=== PATIENT | female | born 1970 | race Caucasian/White ===

== ENCOUNTER 2020-06-20 07:30 | Emergency (ER) | payer BC ==
[2020-06-20 07:43] VITALS: TEMP 98.3; BMI 24.6
--- OUTSIDE RECORDS SUMMARY | 2020-06-20 07:44 | XMS ---
:1970 Demographics Address [address] [place] [id number] Preferred Language Chinese Marital Status or Scientology Affiliation [place] Race [facility] Ethnic Group or Author Organization [facility] Care Team Providers Name Role Phone ISRAEL CELIS Unavailable Unavailable Re-disclosure Warning The records that you are about to access may contain information from federally- assisted alcohol or drug abuse programs. If such information is present, then the following federally mandated warning applies: This information has been disclosed to you from records protected by federal confidentiality rules (42 CFR part 2). The federal rules prohibit you from making any further disclosure of this information unless further disclosure is expressly permitted by the written consent of the person to whom it pertains or as otherwise permitted by 42 CFR part 2. A general authorization for the release of medical or other information is NOT sufficient for this purpose. The Federal rules restrict any use of the information to criminally investigate or prosecute any alcohol or drug abuse patient.The records that you are about to access may contain highly sensitive health information, the redisclosure of which is protected by Article 27-F of the [facility] Public Health law. If you continue you may haveaccess to information: Regarding HIV / AIDS; Provided by facilities licensed or operated by the [facility] Office of Mental Health; or Provided by the [facility] Office for People With Developmental Disabilities. If such information is present, then the following [facility] mandated warning applies: This information has been disclosed to you from confidential records which are protected by state law. State law prohibits you from making any further disclosure of this information without the specific written consent of the person to whom it pertains, or as otherwise permitted by law. Any unauthorized further disclosure in violation of state law may result in a fine or senior care sentence or both. A general authorization for the release of medical or other information is NOT sufficient authorization for further disclosure. Encounters Encounter Providers Location Date Indications Data Source(s ) Outpatient Attender: LALITA, 12/31/2019 Z03.818 [facility] ISRAEL LopezAdmitter: 03:53:00 AM Health [facility] ISRAEL CELIS [employer] Z03.818 Insurance Providers Payer name Policy type / Policy ID Covered Covered democrat's Policy Plan Coverage type democrat ID relationship to [employer] Information pel[employer] BC PPO [id number] SP [id number] Problems, Conditions, and Diagnoses Code Display Name Description Problem Type Effective Data Sour ce(s) Dates Z03.818 Encounter for ENCNTR FOR OBS Diagnosis 12/31/2019 Tad roberts observation for FOR SUSP EXPSR TO 03:53:00 AM [employer] [facility] suspected OTH [employer] AG[employer] exposure to other RULED OUT biological agents ruled out Results ID Date Data Source [id number] 12/31/2019 12:00:00 AM EDT [facility] Name Value Range Interpretation Code Description Data Jodi rce(s) Supporting Document(s ) [facility] RNA XXX MANNIE+probe- Imp This lab was ordered by [facility] and reported by [employer] Procedure
--- NOTE | 2020-06-20 08:12 | PDOC ---
History of Present Illness - General Chief Complaint: Back Pain Stated Complaint: BACK PAIN Time Seen by Provider: 06/20/20 07:55 - History of Present Illness Initial Comments: 06/20/20 08:05 49yo F with PMH of pre-diabetes, HLD, and chronic lower back pain, presents with an acute lower back pain since last night. States it started suddenly after she bent over to get something, then came back up. She immediately began experie ncing pressure-like pain in her lower back radiating to right buttock. Denies radiation down the leg. Worse with any movement. Took advil last night and 1000mg tylenol this morning without significant relief. Denies fever, bladder/bowel incontinence/retention, IV drug use, history of cancer. PMH: as above PSH: benign breast mass excision Meds: simvastatin, vitamins Allergies Allergy/AdvReac Type Severity Reaction Status Date / Time clarithromycin [From Biaxin] Allergy Severe Itching Verified 12/28/14 11:27 levofloxacin [From Levaquin] AdvReac Intermediate Unverified 12/28/14 11:27 hyoscyamine AdvReac Unverified 12/28/14 18:10 GENERAL/CONSTITUTIONAL: No fever or chills. HEAD, EYES, EARS, NOSE AND THROAT: No change in vision. No ear pain or discharge . No sore throat. CARDIOVASCULAR: No chest pain or shortness of breath RESPIRATORY: No cough, wheezing, or hemoptysis. GASTROINTESTINAL: No nausea, vomiting, diarrhea or constipation. GENITOURINARY: No dysuria, frequency, or change in urination. MUSCULOSKELETAL: lower back pain. no neck pain. SKIN: No rash NEUROLOGIC: No headache, vertigo, loss of consciousness, or change in strength/sensation. ENDOCRINE: No increased thirst. No abnormal weight change HEMATOLOGIC/LYMPHATIC: No anemia, easy bleeding, or history of blood clots. ALLERGIC/IMMUNOLOGIC: No hives or skin allergy. PE GENERAL: Awake, alert, and fully oriented, lying crooked, in pain. Any movement worsens pain HEAD: No signs of trauma, normocephalic, atraumatic EYES: PERRLA, EOMI, sclera anicteric, conjunctiva clear ENT: Auricles normal inspection, hearing grossly normal, nares patent, oropharynx clear without exudates. Moist mucosa NECK: Normal ROM, supple, no lymphadenopathy, JVD, or masses LUNGS: No distress, speaks full sentences, clear to auscultation bilaterally HEART: Regular rate and rhythm, normal S1 and S2, no murmurs, rubs or gallops, peripheral pulses normal and equal bilaterally. ABDOMEN: Soft, nontender, normoactive bowel sounds. No guarding, no rebound. No masses EXTREMITIES : Normal inspection, Normal range of motion, no edema. No clubbing or cyanosis. NEUROLOGICAL: Cranial nerves II through XII grossly intact. Normal speech, no focal sensorimotor deficits. SKIN: Warm, Dry, normal turgor, no rashes or lesions noted BACK: lumbar paraspinal tenderness R>L, no midline tenderness. straight leg raise negative. Vital Signs Temp Pulse Resp BP Pulse Ox 98.3 F 76 17 185/157 H 99 06/20/20 07:36 06/20/20 07:36 06/20/20 07:36 06/20/20 07:36 06/20/20 07:36 49yo F with PMH of pre-diabetes, HLD, and chronic lower back pain, presents with an acute lower back pain since last night. Is hypertensive to 185/157. Will recheck after pain control. No red flag signs or symptoms. Most likely muscle spasm. Less likely disc herniation or fracture given benign exam. Will get UA to evaluate for kidney stone. -lidoderm patch, toradol, vallium 06/20/20 11:45 UA negative Pt reports improvement but not total relief of pain after meds. Ambulatory. Last Vital Signs Temp Pulse Resp BP Pulse Ox 98.3 F 60 18 141/71 100 06/20/20 07:36 06/20/20 11:10 06/20/20 11:10 06/20/20 11:10 06/20/20 11:10 DC with naproxen, valium Past History - Medical History Allergies/Adverse Reactions: Allergies Allergy/AdvReac Type Severity Reaction Status Date / Time clarithromycin [From Biaxin] Allergy Severe Itching Verified 06/20/20 08:37 levofloxacin [From Levaquin] AdvReac Intermediate Verified 06/20/20 08:37 hyoscyamine AdvReac Verified 06/20/20 08:37 Home Medications: Ambulatory Orders Simvastatin 20 mg PO DAILY tablet 11/16/14 Cholecalciferol (Vitamin D3) [Vitamin D] 1,000 unit PO DAILY capsule 10/18/15 Diazepam [Valium] 2 mg PO BID PRN #7 tablet MDD 2 tabs 06/20/20 Diazepam [Valium] 2 mg PO HS PRN 3 Days #3 tablet MDD 2 06/20/20 Naproxen 500 mg PO BID 3 Days #6 tablet 06/20/20 Asthma: Yes Cancer: No Cardiac Disorders: No CVA: No COPD: No CHF: No Dementia: No Diabetes: Yes GI Disorders: Yes (GERD) Disorders: No HTN: No Hypercholesterolemia: Yes Liver Disease: No Seizures: No Thyroid Disease: No - Reproductive History Is Patient Now?: No - Psycho-Social/Smoking History Smoking Status: No Smoking History: Never smoked Have you smoked in the past 12 months: No Number of Cigarettes Smoked Daily: 0 Information on smoking cessation initiated: No - Substance Abuse Hx (Audit-C & DAST Scrn) How often the patient has a drink containing alcohol: Never Score: In Men: 4 or > Positive; In Women: 3 or > Positive: 0 Screen Result (Pos requires Nsg. Audit-10AR): Negative In the last yr the pt used illegal drug/Rx for NonMed reason: No Score: Yes response is considered Positive: 0 Screen Result (Positive result requires Nsg. DAST-10): Negative *Physical Exam - Vital Signs Last Vital Signs Temp Pulse Resp BP Pulse Ox 98.3 F 76 17 185/157 H 99 06/20/20 07:36 06/20/20 07:36 06/20/20 07:36 06/20/20 07:36 06/20/20 07:36 Discharge - Discharge Information Problems reviewed: Yes Clinical Impression/Diagnosis: Acute low back pain Qualifiers: Back pain laterality: bilateral Sciatica presence: without sciatica Qualified Code(s): M54.5 - Low back pain - Additional Discharge Information Prescriptions: Naproxen 500 mg PO BID 3 Days #6 tablet Diazepam [Valium] 2 mg PO HS PRN 3 Days #3 tablet MDD 2 PRN Reason: Pain Diazepam [Valium] 2 mg PO BID PRN #7 tablet MDD 2 tabs PRN Reason: Muscle Spasms - Follow up/Referral Referrals: Marisol Hernandez MD [Primary Care Provider] - - Patient Discharge Instructions Patient Printed Discharge Instructions: DI for Low Back Pain Additional Instructions: You were seen in the ER for lower back pain. We did a physical exam, which was not concerning for an emergent problem with your back. You likely have a muscle strain/spasm, which can be very painful. We gave you some medication in the ER which helped, but did not completely eliminate your pain. This is normal, and you should expect the pain to continue, especially when you have been sleeping or sitting for a long time and then try to move. Please move around as much as possible, as your muscles need to work in order to get better. We sent two prescriptions to the hospital pharmacy outside the ER for you to take as directed. You can continue to take naproxen as directed on the label as needed after these first three days. Please follow up with your primary doctor within three days. Please return to the ER if you have weakness, numbness, tingling, incontinence or inability to go the bathroom, fever, or any concerning symptoms. - Post Discharge Activity
[2020-06-20] MEDS ORDERED: diazePAM 2 MG TABLET PO ONE (08:28)
[2020-06-20] MEDS ORDERED: LIDOCAINE 5% TOPICAL PATCH TP ONE (08:28)
[2020-06-20] MEDS ORDERED: KETOROLAC TROMETHAMINE 60 MG/2 ML VIAL IM ONE (08:29)
[2020-06-20] MEDS ORDERED: KETOROLAC TROMETHAMINE 60 MG/2 ML VIAL ONE (08:42)
[2020-06-20] MEDS ORDERED: LIDOCAINE 5% TOPICAL PATCH ONE (08:42)
[2020-06-20] MEDS ORDERED: diazePAM 2 MG TABLET ONE (08:42)
--- NOTE | 2020-06-20 09:03 | PDOC ---
Attending Attestation - Resident Resident Name: JustinHarman - ED Attending Attestation I have performed the following: I have examined & evaluated the patient, The case was reviewed & discussed with the resident, I agree w/resident's findings & plan - HPI HPI: 06/20/20 08:57 49y/o F healthy, h/o chronic low back pain (normal Lspine xray 06/12/20) presents now with acute low back pain since yesterday. Pt bent down then felt a twinge in her back, since then progressive and localized sharp low back pain, worse with positional changes, without associated bowel/bladder issues or radiation to lower extremity, no motor/sensory deficit. no f/c, no weight loss, no night sweats, no trauma. tried aleve yesterday then tylenol this morning with minimal relief so presents for eval - Physicial Exam PE: 06/20/20 09:03 Blood pressure elevated, otherwise afebrile Lying in stretcher alert, slight distress with any positional changes No midline spine tenderness, positive bilateral paraspinal tenderness without swelling or ecchymosis. 5 out of 5 flexion/extension at bilateral hips/knees/ankles/toes, 2+ distal pulses, sensation intact. Negative straight leg raise. - Medical Decision Making 06/20/20 09:04 49-year-old female with history of chronic low back pain presents now with acute low back strain, atraumatic and without any other red flags on history or physical exam. Recent x-ray performed 1 week ago showed no bony pathology, presentation is most consistent with soft tissue strain without radicular involvement. Pain control with lidocaine patch, NSAID, muscle relaxant No indication for further emergent imaging Reassess 06/20/20 10:36 improved after meds, sits up and ambulating steadily to restroom. neuro intact. agrees with d/c plan and understands return criteria Discharge - Discharge Information Problems reviewed: Yes Clinical Impression/Diagnosis: Acute low back pain Qualifiers: Back pain laterality: bilateral Sciatica presence: without sciatica Qualified Code(s): M54.5 - Low back pain - Additional Discharge Information Prescriptions: Naproxen 500 mg PO BID 3 Days #6 tablet Diazepam [Valium] 2 mg PO HS PRN 3 Days #3 tablet MDD 2 PRN Reason: Pain Diazepam [Valium] 2 mg PO BID PRN #7 tablet MDD 2 tabs PRN Reason: Muscle Spasms - Follow up/Referral Referrals: Marisol Hernandez MD [Primary Care Provider] - - Patient Discharge Instructions Patient Printed Discharge Instructions: DI for Low Back Pain Additional Instructions: You were seen in the ER for lower back pain. We did a physical exam, which was not concerning for an emergent problem with your back. You likely have a muscle strain/spasm, which can be very painful. We gave you some medication in the ER which helped, but did not completely eliminate your pain. This is normal, and you should expect the pain to continue, especially when you have been sleeping or sitting for a long time and then try to move. Please move around as much as possible, as your muscles need to work in order to get better. We sent two prescriptions to the hospital pharmacy outside the ER for you to take as directed. You can continue to take naproxen as directed on the label as needed after these first three days. Please follow up with your primary doctor within three days. Please return to the ER if you have weakness, numbness, tingling, incontinence or inability to go the bathroom, fever, or any concerning symptoms. - Post Discharge Activity
[2020-06-20 10:25] LABS: PH,URINE 6.5 (5.0-8.0); URINE APPEARANCE CLEAR; URINE BILIRUBIN NEGATIVE (NEGATIVE); URINE COLOR YELLOW; URINE GLUCOSE (UA) NEGATIVE (NEGATIVE); URINE KETONE NEGATIVE (NEGATIVE); URINE LEUK ESTERASE NEGATIVE (NEGATIVE); URINE NITRITE NEGATIVE (NEGATIVE); URINE PROTEIN NEGATIVE (NEGATIVE); URINE UROBILINOGEN 0.2 mg/dL (0.2-1.0)
[2020-06-20 11:23] VITALS: BP 141/71; PULSE 60
[2020-06-20] MEDS ORDERED: LIDOCAINE PATCH REMOVAL MC SCH (22:00)
== END 2020-06-20 11:10 | disposition home or self-care (01) ==
LOC: JER 07:30
PROC: 3E0233Z Introduction of Anti-inflammatory into Muscle, Percutaneous Approach (ICD-10-PCS; principal; 2020-06-20)
DX: M54.5 Low back pain (principal)
CPT/HCPCS: 81003; 99284-25